=== PATIENT | male | born 1950 | race Caucasian/White ===

== ENCOUNTER → 2024-10-04 | Outpatient (CLI) | payer OTHER, SELFPAY ==
--- NOTE | 2024-10-04 15:30 | LES_PTH ---
PATIENT: RAMIRO SINHA LOC: [facility] U#:[id number] AGE/SX: 74/M ROOM: RE10/04/[address]: Dr. Bossman Cano MD : 1950 BED: DIS: 10/04/2024 SPEC #: [id number] RECD: 10/04/24 17:14 STATUS: SHIKHA REBetzy #: [id number] RYLEY: 10/04/24 15:[address]: Bossman Cano DEPT: SURGICAL PATHOLOGY RECD BY: Benigno Molina ENTERED: 10/07/24 09:09 SP TYPE: Lesion OTHR DR: Dr. Niall Vaca DO Tissues: A - Skin of back, NOS Procedures: Surgery Specimen Level IV HEADER OPERATION: Biopsy PRE-OP DIAGNOSIS: Right back TISSUE SUBMITTED: A- Right back biopsy MICROSCOPIC DIAGNOSIS A. Right back, excision: Ruptured epidermal inclusion cyst, inflamed. MICROSCOPIC DESCRIPTION Slides are reviewed. GROSS DESCRIPTION A. Received in formalin in a container labeled with the patient's name, date of , and #1 with the accompanying paperwork indicating, right back. The office is called, and per nurse Saini, the case consists of only one specimen labeled, right back. The specimen consists of a shaggy and unoriented portion of yellow-lundy soft tissue measuring 4.0 x 2.3 x 1.0 cm. There is a 2.0 x 2.0 cm previously disrupted, possible cyst wall filled with white friable material. The intact portion of the outer surface is inked green, and serial sections reveal that the cyst lining appears smooth. The remaining soft tissue is bowden-yellow and rubbery. [employer]er sections are submitted in A1. [facility] 10-07-2024 CPT:[id number]
== END | disposition home or self-care (01) ==
LOC: LABSPEC 10-05 06:45
PROVIDERS: PCP Family Medicine; Referring Provider Surgery Plastic and Reconstructive Surgery; Visit Provider Surgery Plastic and Reconstructive Surgery
DX: L02.212 Cutaneous abscess of back [any part, except buttock and flank] (principal)
CPT/HCPCS: 87070; 87077; 87186; 87205; 88305